=== PATIENT | male | born 1960 | race Caucasian/White ===

== ENCOUNTER → 2016-04-20 11:18 | Outpatient (CLI) | payer MEDICAID ==
[2015-01-31 09:44] VITALS: BMI 32.3
[~2016-04-20 11:18] MED LIST: ASPIRIN81 MG PO; EFFIENT10 MG PO; LISINOPRIL5 MG PO; METOPROLOL TAR100 M1 PO; PRAVACHOL20 MG PO
[2016-04-20 12:14] LABS: ALBUMIN 3.9 g/dL (3.4-5.0); ALKALINE PHOSPHATASE 71 U/L (46-116); ALT (SGPT) 25 U/L (10-68); BILIRUBIN - TOTAL 0.32 mg/dL (0.2-1.3); CALC OSMOLALITY 279 mosm/kg (275-300); CALCIUM 9.5 mg/dL (8.5-10.1); CARBON DIOXIDE 29.1 mmol/L (21.0-32.0); CHLORIDE - SERUM 103 mmol/L (98-107); CHOL - HDL RATIO 5.4 ratio (2.3-4.9); CHOLESTEROL, TOTAL 215 mg/dL (0-200); GLUCOSE 95 mg/dL (74-106); HDL CHOLESTEROL 40 mg/dL (32-96); LDL CHOLESTEROL 126 mg/dL (0-100); LDL-HDL RATIO 3.2 ratio (1.5-3.5); POTASSIUM - SERUM 4.2 mmol/L (3.5-5.1); SODIUM 140 mmol/L (136-145); TRIGLYCERIDE 245 mg/dL (30-200); UREA NITROGEN 14 mg/dL (7-18); eGFR NON AFRICAN AMERICAN 82 mL/min (90-120)
== END | disposition home or self-care (01) ==
LOC: D.LAB 11:18
PROVIDERS: General Practice
DX: I10 Essential (primary) hypertension (principal); E78.5 Hyperlipidemia, unspecified; E66.9 Obesity, unspecified

== ENCOUNTER → 2020-08-27 09:33 | Outpatient (CLI) | payer MEDICAID ==
[2015-01-31 09:44] VITALS: BMI 32.3
== END | disposition home or self-care (01) ==
LOC: D.HCCECHO 09:33
PROVIDERS: ATTEND Internal Medicine Cardiovascular Disease
DX: I25.10 Atherosclerotic heart disease of native coronary artery without angina pectoris (principal)

== ENCOUNTER 2020-09-08 10:46 | Day surgery (SDC) | payer MEDICAID ==
[~2020-09-08] VITALS: Ht 175.3 cm; Wt 102.6 kg
--- NOTE | ~2020-09-08 | HEMODYNAMI ---
PATIENT:MASSIMO ESPINOZA MEDICAL RECORD: [id number] : 60 LOCATION:[facility] ADMISSION DATE: 09/08/20 Generatedon:110:19 Patient name: MASSIMO ESPINOZA Patient #: [id number] SSN: : 1960 Date of study: 09/08/2020 Page: Of Hemodynamic Procedure Report Patient Data Patient Demographics Procedure consent was obtained First Name: MASSIMO Gender: Male Last Name: ALEXIS : 1960 [facility] Initial: MANDY Age: 60 year(s) Patient #: [id number] Race: Additional ID: [id number] Contact details [address]: [address] [place] [address] State: [place] City: [facility] Zip code: [address] Past Medical History Allergies: No known allergies Admission Admission Data Admission Date: 09/08/2020 Admission Time: 10:46 Admit Source: Other Insurance Payor: Medicaid Height (in.): 69 BSA: 2.18 (m2) Height (cm.): 175.26 BMI: 33.42 (kg/m2) Weight (lbs.): 226.28 Weight (kg.): 102.64 Lab Results Lab Result Date: 09/08/2020 Lab Result Time: 0:00 Biochemistry Name Units Result Min Max Creatinine mg/dl 1.3 --(---*)-- 0.6 1.3 eGFR ml/min 60 *-(----)-- 90 120 NONAFRICAN CBC Name Units Result Min Max Hemoglobin g/dl 17.3 --(---*)-- 13.5 17.5 Procedure Procedure Types Cath Procedure Diagnostic Procedure C [facility] w/Coronaries FFR/IVUS FFR Initial Sedation Charges Moderate Sedation 25-39 minutes PCI Procedure Coronary Stent Coronary Stent Initial Procedure Description Procedure Date Procedure Date: 09/08/2020 Procedure Start Time: 12:58 Procedure End Time: 13:49 Procedure Staff Name Function Sallie Franz RT Monitor Kiran Ruiz RN Nurse Antoni Travis MD Performing Physician Christiane Vega RT Scrub Procedure Data Cath Procedure Fluoroscopy Diagnostic fluoroscopy Total fluoroscopy Time: time: 11.6 min 11.6 min Diagnostic fluoroscopy Total fluoroscopy dose: dose: 1671 mGy 1671 mGy Contrast Material Contrast Material Type Amount (ml) Isovue 370 112 Entry Location Entry Primary Successful Side Size Upsize Upsize Entry Closure Martni ccessful Closure Location (Fr) 1 (Fr) 2 (Fr) Remarks Device Remarks Radial Right 6 Fr Mechanical artery Short Compression Estimated blood loss: 5 ml Diagnostic catheters Device Type Used For End Catheter Placement DIAGNOSTIC Celina 110cm 5 LV Angiography Fr catheter ([id number]) DIAGNOSTIC Celina 110cm 5 Left Coronary Fr catheter ([id number]) Angiography DIAGNOSTIC Celina 110cm 5 Right Coronary Fr catheter ([id number]) Angiography Procedure Complications No complications Procedure Medications Medication Administration Route Dosage Oxygen etCO2 Nasal cannula 4 l/min Lidocaine 2% S.C. 20 Heparin Flush Bag added to field 2 bags (1000units/500ml NS) 0.9% NaCl I.V. 10 ml/hr Radial Cocktail added to field 1 syringe (Verapamil 2mg/Nitro 400mcg/Heparin 1500units) Versed I.V. 1 mg Fentanyl I.V. 50 mcg Versed I.V. 1 mg Fentanyl I.V. 50 mcg Heparin Bolus I.V. 6000 units Heparin Bolus I.V. 4000 units Versed I.V. 1 mg Plavix P.O. 600 mg Hemodynamics Rest BSA: 2.18 (m2) HGB: 17.3 (g/dl) O2 Consumption: Estimated: 251.33 (ml/min) O2 Co nsumption indexed: Estimated:115.29 (ml/min/m) Heart Rate: 64 (bpm) Pressure Samples Time Site Value (mmHg) Purpose Heart Use Rate(bpm) 13:00 LV 109/-3,10 Snapshot 65 13:01 LV 103/-11,-2 Pullback 75 13:01 AO 79/44(62) Pullback 75 Gradients Valve Time Site 1 Site 2 Mean SEP/DFP Peak To Heart Use (mmHg) (sec/min) Peak Rate (mmHg) (bpm) Aortic 13:01 LV AO 10 11 24 75 103/-11,-2 79/44(62) Calculations Valve P-P Mean Valve Index Valve Source Name Gradient Area Flow (cm2) Aortic 24 10 24 10 Snapshots Pre Cath Intra NCS Post Cath Vital Signs Time Heart Resp SPO2 etCO2 NIBP (mmHg) Rhythm Pain Sedation Rate (ipm) (%) (mmHg) Status Level (bpm) 12:43:59 70 21 91 0 123/83(100) NSR 0 (11) 10(A) , No pain 12:48:09 63 18 93 23.3 115/76(90) NSR 0 (11) 10(A) , No pain 12:52:15 65 15 94 27.1 115/77(93) NSR 0 (11) 10(A) , No pain 12:56:23 63 15 88 33.1 113/73(88) NSR 0 (11) 10(A) , No pain 13:00:31 71 14 91 37.7 106/65(85) NSR 0 (11) 10(A) , No pain 13:04:36 65 13 89 26.3 105/63(77) NSR 0 (11) 10(A) , No pain 13:08:42 64 15 92 55 107/67(88) NSR 0 (11) 10(A) , No pain 13:12:48 63 14 92 56.5 102/68(78) NSR 0 (11) 10(A) , No pain 13:16:54 65 14 92 48.9 104/63(83) NSR 0 (11) 10(A) , No pain 13:20:58 66 17 92 52.7 108/70(81) NSR 0 (11) 10(A) , No pain 13:25:03 66 15 89 64.8 112/68(81) NSR 0 (11) 10(A) , No pain 13:29:11 67 15 94 51.9 104/67(86) NSR 0 (11) 10(A) , No pain 13:33:13 66 18 94 67 110/75(88) NSR 0 (11) 10(A) , No pain 13:37:19 67 17 94 63.2 114/70(81) NSR 0 (11) 10(A) , No pain 13:41:29 68 19 96 58 110/73(90) NSR 0 (11) 10(A) , No pain 13:46:32 70 19 95 48.9 No Cuff NSR 0 (11) 10(A) , No pain Medications Time Medication Route Dose Verified Delivered Reason Not es Effectiveness by by 12:49:04 Oxygen etCO2 4 l/min Antoni Buffie used for pt with Nasal Thaddeus Ruiz RN procedure lower cannula oxygen saturation at 89% on room air on arrival to lab. 12:49:22 Lidocaine 2% S.C. 20ml Antoni Buffie used for vial Thaddeus Ruiz RN procedure 12:49:36 Heparin Flush added 2 bags Antoni Buffie used for Bag to Thaddeus Ruiz RN procedure (1000units/500ml field NS) 12:51:23 0.9% NaCl I.V. 10 Antoni Buffie used for ml/hr Thaddeus Ruiz RN procedure 12:51:40 Radial Cocktail added 1 Antoni Buffie used for (Verapamil to syringe Thaddeus Ruiz RN procedure 2mg/Nitro field 400mcg/Hepari 12:59:53 Versed I.V. 1 mg Antoni Buffie for sedation Thaddeus Ruiz RN 12:59:59 Fentanyl I.V. 50 mcg Antoni Buffie for sedation Thaddeus Ruiz RN 13:05:25 Versed I.V. 1 mg Antoni Buffie for sedation Thaddeus Ruiz RN 13:05:30 Fentanyl I.V. 50 mcg Antoni Buffie for sedation Thaddeus Ruiz RN 13:08:52 Heparin Bolus I.V. 6000 Antoni Buffie for jesse ified units Thaddeus Ruiz RN anticoagulation with dr travis 13:16:21 Heparin Bolus I.V. 4000 Antoni Buffie for jesse ified units Thaddeus Ruiz RN anticoagulation with dr travis 13:30:44 Versed I.V. 1 mg Antoni Buffie for sedation Thaddeus Ruiz RN 13:46:49 Plavix P.O. 600 mg Antoni Buffie for Thaddeus Ruiz RN antiplatelet therapy Procedure Log Time Note 12:32:17 Diagnostic Cath Status : Elective 12:32:20 Admit Source: Other 12:32:27 Patient Height : 69 inches 12:32:33 Patient Weight : 226.28 lbs 12:32:45 Insurance Payor : Medicaid 12:35:21 Lab Result : Hemoglobin 17.3 g/dl 12:35:21 Lab Result : eGFR NONAFRICAN 60 ml/min 12:35:21 Lab Result : Creatinine 1.3 mg/dl 12:35:27 Kiran Ruiz RN sent for patient. Start room use. 12:35:28 Time tracking: Regular hours (M-F 7:00 - 5:00) 12:35:32 Plan of Care:Hemodynamics will remain stable., Cardiac rhythm will remain stable., Comfort level will be maintained., Respiratory function will remain adequate., Patient/ family verbilizes understanding of procedure., Procedure tolerated without complication., Recovers from procedure without complications.. 12:35:35 Procedure Status Elective Heart Cath (OP). 12:35:39 ACCPatient has been prescribed/administered the following anti-anginal medication within the last 2 weeks: Beta Katiuska 12:35:43 ACC Patient presents with Stable Angina CCS Anginal Class 2--Slight limitation of ordinary activity. 12:36:49 Patient received from Pre/Post Procedure Room to [facility] 2 Alert and oriented. Tansferred to table in Supine position. 12:36:52 Signed procedure consent form obtained from patient. 12:36:53 Warm blankets applied, and braydon hugger turned on for patient comfort. 12:36:54 ECG and BP/O2 sat monitors applied to patient. 12:36:54 Correct patient and procedure confirmed by team. 12:36:55 Full Disclosure recording started 12:42:58 Vital chart was started 12:43:08 Rhythm: sinus rhythm 12:43:35 H&P Date Dictated: 09/07/2020 Within 30 days and on chart., H&P Addendum completed by physician on day of procedure. (MUST COMPLETE FOR ALL OUTPATIENTS). 12:43:36 Pre-op teaching completed and patient verbalized understanding. 12:43:36 Pre-procedure instructions explained to patient. 12:43:39 Family in waiting room. 12:43:41 Patient NPO since Midnight. 12:43:49 Patient allergic to No known allergies 12:43:51 Is the patient allergic to Iodine/contrast media? No. 12:43:53 Is patient on blood thinner?No 12:43:58 ACC The patient was administered the following blood thiners within the last 24 hours: ACCAspirin 12:45:41 Bleeding risk 0.1%. 12:45:43 Patient diabetic? No. 12:45:47 Snore? Yes 12:45:47 Previous problem with sedation/anesthesia? No ? 12:45:49 Sleep apnea? No 12:45:50 Deviated septum? No 12:45:51 Opens mouth fully? Yes 12:45:52 Sticks out tongue? Yes 12:45:54 Airway obstruction? No ? 12:45:55 Dentures? No ? 12:46:24 Pre procedure: right dorsailis pedis pulse 2+ Normal; easily identifiable; not easily obliterated 12:46:25 Modified Dov's test Radial < 7 seconds 12:46:29 Patient pain scale 0/10 ?. 12:46:42 IV patent on arrival in right forearm with 0.9% NaCl at [facility]. 12:46:44 Lab results completed and on chart. 12:46:51 Risk of Mortality: 0.1 12:46:55 Risk of blood transfusion: 0.1 12:46:57 Risk of EVELIA: 3.7 12:47:01 Alarms reviewed by R. N. 12:47:01 Right Radial & Right Groin area was prepped with chlora-prep and draped in sterile fashion 12:47:02 Sharps counted by scrub and verified by R.N. 12:47:07 Use device set Radial Dx or PCI 12:47:08 ACIST Syringe (80259) opened to sterile field. 12:47:09 Bag Decanter (2002S) opened to sterile field. 12:47:09 Medline Cath Pack ([id number]) opened to sterile field. 12:47:10 ACIST Hand Control (26858) opened to sterile field. 12:47:11 ACIST Manifold (37921) opened to sterile field. 12:47:13 MBrace Wrist Support ([id number]) opened to sterile field. 12:47:18 NEEDLE Cook 21G 4cm Radial (R99040) opened to sterile field. 12:47:20 EMERALD Guide Wire (291-817) opened to sterile field. 12:47:20 SHEATH 6FR RAIN (5698031) opened to sterile field. 12:47:39 2) 60-89 Mildly reduced kidney function, and other findings (as for stage 1) point to kidney disease. 12:47:43 Maximum allowable contrast dose (3.7 X eGFR X 0.75)167 ml. 12:47:47 Physician arrived 12:48:38 Baseline sample Acquired. 12:49:04 Oxygen 4 l/min etCO2 Nasal cannula was administered by Kiran Ruiz RN; used for procedure; pt with lower oxygen saturation at 89% on room air on arrival to lab. Verbal order read back and verified. 12:49:22 Lidocaine 2% 20ml vial S.C. was administered by Kiran Ruiz RN; used for procedure; Verbal order read back and verified. 12:49:36 Heparin Flush Bag (1000units/500ml NS) 2 bags added to field was administered by Kiran Ruiz RN; used for procedure; Verbal order read back and verified. 12:51:23 0.9% NaCl 10 ml/hr I.V. was administered by Kiran Ruiz RN; used for procedure; Verbal order read back and verified. 12:51:40 Radial Cocktail (Verapamil 2mg/Nitro 400mcg/Heparin 1500units) 1 syringe added to field was administered by Kiran Ruiz RN; used for procedure; Verbal order read back and verified. 12:53:39 Zero performed for pressure channel P1 12:54:31 Stress Test: yes; abnormal reversible inferior and apical defect 12:58:41 Final Timeout: patient, procedure, and site verified with staff and physician. All members of the team are in agreement. 12:58:43 Right groin site verified by team. 12:58:46 Fire Safety Assessment: A--An alcohol-based skin anteseptic being used preoperatively., C--Open oxygen or nitrous oxide is being used., D--An ESU, laser, or fiber-optic light is being used. 12:58:50 Sedation plan: IV Moderate Sedation Medication:Versed, Fentanyl 12:58:54 Procedure started. 12:58:57 Local anesthetic to right radial artery with Lidocaine 2% by Antoni Travis MD.INITIAL ACCESS ONLY 12:59:18 A 6 Fr Short sheath was inserted into the Right Radial artery 12:59:53 Versed 1 mg I.V. was administered by Kiran Ruiz RN; for sedation; Verbal order read back and verified. 12:59:59 Fentanyl 50 mcg I.V. was administered by Kiran Ruiz RN; for sedation; Verbal order read back and verified. 13:00:40 A DIAGNOSTIC Celina 110cm 5 Fr catheter ([id number]) was advanced over the wire and used for LV Angiography. 13:01:09 LV gram done using BANERJEE 13:01:14 EF : 60 % 13:01:15 LV hemodynamics recorded. 13:01:23 Injector settings: Ml/sec: 5, Volume: 15, 13:01:49 A DIAGNOSTIC Celina 110cm 5 Fr catheter ([id number]) was advanced over the wire and used for Left Coronary Angiography. 13:04:45 A DIAGNOSTIC Celina 110cm 5 Fr catheter ([id number]) was advanced over the wire and used for Right Coronary Angiography. 13:05:23 INFLATOR Merit BasixCompak (YK1067) opened to sterile field. 13:05:24 GUIDE 6FR EBU 3.5 catheter ([id number]) opened to sterile field. 13:05:25 Versed 1 mg I.V. was administered by Kiran Ruiz RN; for sedation; Verbal order read back and verified. 13:05:25 [place] OmniWire (14573) opened to sterile field. 13:05:30 Catheter removed. 13:05:30 Fentanyl 50 mcg I.V. was administered by Kiran Ruiz RN; for sedation; Verbal order read back and verified. 13:05:37 Proceeding to intervention. 13:05:40 Mortality risk 0.1%. 13:06:14 Procedure type changed to Cath procedure, Diagnostic procedure, LHC, LHC w/Coronaries, FFR/IVUS, FFR Initial, Sedation Charges, Moderate Sedation 25-39 minutes, PCI procedure, Coronary Stent, Coronary Stent Initial 13:06:54 6 Fr EBU 3.5 guide catheter was inserted over the wire 13:07:02 TUBING High Pressure Extension Tubing (Thaddeus) ([id number]) opened to sterile field. 13:08:11 Omni Pressure wire advanced. 13:08:52 Heparin Bolus 6000 units I.V. was administered by Kiran Ruiz RN; for anticoagulation; verified with dr travis Verbal order read back and verified. 13:14:14 mLAD Baseline FFR 0.86. 13:16:21 Heparin Bolus 4000 units I.V. was administered by Kiran Ruiz RN; for anticoagulation; verified with dr travis Verbal order read back and verified. 13:21:52 The CRISTHIAN RX 3.0 x 18 stent ([id number]) was advanced then removed because of failure to cross lesion 13:22:06 Wire removed. 13:22:11 Guide catheter removed. 13:22:42 GUIDE 6FR XBLAD 3.5 catheter ([id number]) opened to sterile field. 13:22:55 6 Fr XBLAD 3.5 guide catheter was inserted over the wire 13:23:48 Omni wire advanced. 13:27:33 Wire removed. unable to cannulate vessel. 13:28:22 Omni wire advanced. 13:29:17 Wire advanced across lesion. 13:30:44 Versed 1 mg I.V. was administered by Kiran Ruiz RN; for sedation; Verbal order read back and verified. 13:30:52 The CRISTHIAN RX 3.0 x 18 stent ([id number]) was advanced then removed because of failure to cross lesion 13:31:00 Wire removed. damaged. 13:31:21 BMW 300cm Fountain 2 J wire ([id number]) opened to sterile field. 13:32:48 BMW wire advanced. 13:35:00 Place stent Inflation Number: 1 A CRISTHIAN RX 3.0 x 18 stent ([id number]) was prepped and advanced across the Mid LAD . The stent was deployed at 14 SHAYNA for 0:19 (min:sec) . 13:35:54 Stent catheter was removed intact over wire. 13:35:56 Wire removed. 13:37:24 Guide catheter removed. 13:37:35 Sheath removed intact; hemostasis achieved with Mechanical Compression to the Right Radial artery. 13:37:37 Procedure ended.(Physican Out) 13:37:50 Fluoroscopy time 11.60 minutes. 13:37:54 Fluoroscopy dose: 1671 mGy 13:37:54 Flurop Dose total: 1671 13:37:57 Dose Area Product 113 mGy/cm. 13:38:02 Contrast amount:Isovue 370 112ml. 13:38:03 Maximum allowable dose exceeded? No. 13:38:06 Sharps counted by scrub and verified by R.N. 13:38:10 Insertion/operative site no bleeding no hematoma. 13:38:20 Post right radial artery:stable, clean and dry 13:38:22 Post Procedure Pulses reassessed and unchanged 13:38:51 Post-procedure physical assessment completed. ASA score P 2 - A patient with mild systemic disease as per Antoni Travis MD. 13:38:53 Post procedure rhythm: unchanged. 13:38:56 Estimated blood loss: 5 ml 13:38:57 Patient needs reinforcement of post procedure teaching. 13:38:57 Post procedure instruction explained to patient.Patient verbalizes understanding. 13:40:16 ZEPHYR REGULAR TR BAND (150137) opened to sterile field. 13:40:35 Procedure Complication : No complications 13:40:37 Procedure and supply charges have been captured, reviewed, submitted and are correct. 13:40:39 Operative report dictated upon procedure completion. 13:40:40 See physician's report for complete and final results. 13:46:49 Plavix 600 mg P.O. was administered by Kiran Ruiz RN; for antiplatelet therapy; Verbal order read back and verified. 13:47:23 ACT drawn and resulted at out of range high seconds. (normal therapeutic range 180-240 seconds). 13:49:03 Vital chart was stopped 13:49:07 Report given to Pre/Post Procedure Room. 13:49:09 Patient transfered to Pre/Post Procedure Room with Stretcher. 13:49:11 Full Disclosure recording stopped 13:49:11 Procedure ended. 13:49:19 End room use (Document Last) 13:49:49 End room use (Document Last) 10:18:57 Due to technical difficulties on date of procedure, I had to have document resigned by Dr. Travis. Sallie Franz RT(R) Intervention Summary Intervention Notes Time ActionType Lesion and Equipment Used Action# Pressure Duration Attributes 13:21:52 Discard CRISTHIAN RX 3.0 x Stent 18 stent ([id number]) 13:30:52 Discard CRISTHIAN RX 3.0 x Stent 18 stent ([id number]) 13:35:00 Place stent Mid LAD CRISTHIAN RX 3.0 x 1 14 00:19 18 stent ([id number]) Device Usage Item Name Manufacture Quantity Catalog Hospital Part Current [facility] Lot# / Number Charge Number Stock Stock Serial# Code ACIST Syringe Acist 1 47369 842996 628418 166899 20 (35767) Medical [employer] Inc Medline Cath Medline 1 [id number] 174873 27176 747662 5 Pack ([id number]) Bag Decanter Microtek 1 359781 72187 721898 5 () Medical Inc. ACIST Hand Acist 1 62582 803524 362780 828616 5 Control Medical (93039) Systems Inc ACIST Manifold Acist 1 42638 958277 601485 780423 5 (71656) Medical Systems Inc MBrace Wrist Advanced 1 140-0250-00 810399 84173 611177 5 Support Vascular ([id number]) Dynamics NEEDLE Lumi Mobile Medical 1 [id number] 867247 827853 142854 5 21G 4cm Radial (D90508) SHEATH 6FR Cardinal 1 2639153 947717 1892679 566267 5 RAIN (0178765) Health EMERALD Guide Cardinal 1 502-455 557867 552645 402380 5 Wire (502-455) Health DIAGNOSTIC Terumo 1 40-6193 780887 355123 557574 5 Celina 110cm 5 Fr catheter (596907) INFLATOR Merit Merit 1 [id number] 481345 210715 197727 15 BasixAmplio Group Medical (SX0094) GUIDE 6FR EBU Medtronic 1 [id number] 797883 73645 393428 3 3.5 catheter ([id number]) [place] Greenville 1 4322402 534827 34185 9930 5 OmniWire (94285) TUBING High Merit 1 [id number] 043047 18181 703202 10 Pressure Medical Extension Tubing (Travis) ([id number]) CRISTHIAN RX 3.0 x Medtronic 1 [id number] 869784 7630520 286182 5 [id number] 18 stent ([id number]) GUIDE 6FR Cardinal 1 [id number] 804719 209732 527117 10 XBLAD 3.5 Health catheter (57167981) BMW 300cm Galeas 1 [id number] 117807 615626 744594 5 Fountain 2 J Vascular wire ([id number]) ZEPHYR REGULAR Cardinal 1 866246 431153 0342137 495292 5 TR BAND Handmark (327315) Signature Audit Roach Stage Time Signature Unsigned Intra-Procedure 09/08/2020 Kiran Rizo Counts 1:49:49 PM RN; Sallie RT(R) 09/09/2020 Counts RT(R); 10:18:01 AM Antoni Travis MD Intra-Procedure 09/09/2020 Antoni Travis MD 10:19:33 AM Signatures Monitor : Sallie Signature : Counts RT Date : Time : Nurse : Buffie Ruiz RN Signature : Date : Time : Performing Physician : Signature : Antoni Travis MD Date : Time : [address] [address] [place] [address]
[2020-09-08] MEDS ORDERED: LISINOPRIL40 MG PO (10:59)
[2020-09-08] MEDS ORDERED: PROAIR HFA8.5 G1 INH (10:59)
[2020-09-08] MEDS ORDERED: LIPITOR10 MG PO (11:03)
[2020-09-08] MEDS ORDERED: CARDIZEM120 MG PO (11:07)
[2020-09-08] MEDS ORDERED: FLOMAX0.4 MG PO (11:08)
[2020-09-08] MEDS ORDERED: METOPROLOL TART50 MG PO (11:11)
[2020-09-08 11:32] VITALS: BP 130/81; Ht 175.3 cm; Wt 102.6 kg
[2020-09-08 11:51] LABS: BASOPHILS 0.3 % (0-2); EOSINOPHILS 8.4 % (0-7); HEMATOCRIT 51.9 % (42.0-54.0); HEMOGLOBIN 17.3 g/dL (13.5-17.5); LYMPHOCYTES 20.5 % (15-50); MCH 31.2 pg (26.0-34.0); MCHC 33.3 g/dL (31.0-37.0); MCV 93.7 fL (80.0-100.0); MEAN PLATELET VOLUME 7.5 fL (7.4-10.4); MONOCYTES 15.6 % (2-11); NEUTROPHILS 55.2 % (40-80); RBC 5.54 10x6/uL (4.20-6.10); RDW 14.3 % (11.5-14.5); WBC 6.5 10x3/uL (4.8-10.8)
[2020-09-08 11:53] LABS: PLATELET COUNT 186 10x3/uL (130-400)
[2020-09-08 12:04] LABS: ANION GAP 10.4 mmol/L (8-16); CALCIUM 9.1 mg/dL (8.5-10.1); CARBON DIOXIDE 32.5 mmol/L (21.0-32.0); CREATININE - SERUM 1.3 mg/dL (0.6-1.3); LDL-HDL RATIO 1.2 ratio (1.5-3.5); POTASSIUM - SERUM 3.9 mmol/L (3.5-5.1)
--- NOTE | 2020-09-08 14:00 | NUR ---
PT REC'D TO REPRINT [facility] RECOVERY ROOM 4, MONITORS ESTAB. DAUGHTER AT BS. Z BAND TO R WRIST C/D/I - SEE TELECOM COORDINATOR FLOWSHEETS. ALARMS ON AND C/L IN REACH.
[2020-09-08] MEDS ORDERED: PLAVIX75 MG PO (14:13)
--- NOTE | 2020-09-08 14:15 | NUR ---
R Z BAND SITE C/D/I, NO S/S BLEEDING OR SWELLING. R ARM/HAND WARM WITH PALP PULSES AND BRISK CAP REFILL. VSS. ALARMS ON AND C/L IN REACH.
--- NOTE | 2020-09-08 14:45 | NUR ---
R WRIST SITE C/D/I, NO S/S BLEEDING OR HEMATOMA. R ARM/HAND WARM WITH PALP PULSES AND BRISK CAP REFILL. PT RESTING/SNORING, AWAKENS EASILY, DENIES PAIN OR NEEDS. DAUGHTER AT BS. ALARMS ON AND C/L IN REACH.
--- NOTE | 2020-09-08 15:00 | NUR ---
VSS. PT SITTING UP IN BED, I UPDATED DAUGHTER ON POC, PLAN FOR DISCHARGE AT 1800, NEW PLAVIX PRESCRIPTION PROVIDED FOR DAUGHTER TO TAKE TO PHARMACY PER PT REQUEST. R WRIST Z BAND SITE C/D/I, NO S/S BLEEDING OR HEMATOMA. PULSES PALP, BRISK CAP REFILL. ALARMS ON AND C/L IN REACH.
--- NOTE | 2020-09-08 15:30 | NUR ---
R Z BAND SITE C/D/I, NO S/S BLEEDING OR HEMATOMA. R ARM/HAND WARM WITH PALP PULSES AND BRISK CAP REFILL. SANDWICH TRAY AND COLA PROVIDED. ALARMS ON AND C/L IN REACH.
--- NOTE | 2020-09-08 15:49 | NUR ---
DR BERNARD IN TO SEE PT, UPDATED RE: WILL BRING PT BACK IN 2 WEEKS FOR ANOTHER PROCEDURE. I notified Shayna in the office, and Virgen in scheduling.
--- NOTE | 2020-09-08 16:00 | NUR ---
VSS. R ARM/HAND WARM WITH PALP PULSES, NO S/S BLEEDING OR HEMATOMA. PT TOLERATED DIET, NO N/V. DENIES PAIN OR NEEDS. STATES "I JUST WANT TO GO HOME".. POC EXPLAINED TO PT, PT VERBALIZES UNDERSTANDING. ALARMS ON AND C/L IN REACH.
--- NOTE | 2020-09-08 16:30 | NUR ---
PT RESTING QUIETLY, NO S/S BLEEDING OR HEMATOMA. PULSES PALP. PT DENIES PAIN OR NEEDS. ALARMS ON AND C/L IN REACH.
--- NOTE | 2020-09-08 17:00 | NUR ---
4CC AIR REMOVED FROM Z BAND, NO S/S BLEEDING OR HEMATOMA. R ARM/HAND WARM WITH PALP PULSES AND BRISK CAP REFILL. PT VERBALIZES UNDERSTANDING OF S/S TO REPORT TO NURSE. ALARMS ON AND C/L IN REACH.
--- NOTE | 2020-09-08 17:15 | NUR ---
TOTAL 7 CC AIR REMOVED FROM Z BAND, NO S/S BLEEDING OR HEMATOMA.
--- NOTE | 2020-09-08 17:29 | NUR ---
ALL AIR REMOVED FROM Z BAND, NO S/S BLEEDING OR HEMATOMA. VSS. DAUGHTER AT BS. PT DENIES PAIN OR NEEDS. C/L IN REACH.
--- NOTE | 2020-09-08 17:42 | NUR ---
R Z BAND REMOVED, NO S/S BLEEDING OR HEMATOMA, DSG APPLIED. PIV D/C'D INTACT, DSG APPLIED. PT ALLOWED UP TO GET DRESSED AND GO TO BR INDEPENDENTLY.
--- NOTE | 2020-09-08 17:50 | NUR ---
ALL DISCHARGE INSTRUCTIONS REVIEWED WITH PT AND DAUGHTER, INCLUDING RESTRICTIONS, MEDS (INCLUDING NEW PLAVIX) AND F/U, PLAN TO RETURN FOR PROCEDURE - BOTH VERBALIZE UNDERSTANDING.
--- NOTE | 2020-09-08 17:55 | NUR ---
PT D/C'D TO PRIVATE VEHICLE WITH DAUGHTER, PT REFUSED TO RIDE IN . PT HAS ALL BELONGINGS AND PAPERWORK.
== END 2020-09-08 17:55 | disposition home or self-care (01) ==
LOC: D.CATH 10:46
PROVIDERS: ATTEND Internal Medicine Cardiovascular Disease
DX: I25.118 Atherosclerotic heart disease of native coronary artery with other forms of angina pectoris (principal); R94.39 Abnormal result of other cardiovascular function study; I10 Essential (primary) hypertension

== ENCOUNTER 2020-09-25 06:44 | Day surgery (SDC) | payer MEDICAID ==
[~2020-09-25] VITALS: Ht 175.3 cm; Wt 102.7 kg
--- NOTE | ~2020-09-25 | HEMODYNAMI ---
PATIENT:MASSIMO ESPINOZA MEDICAL RECORD: [id number] : 60 LOCATION:[facility] ADMISSION DATE: 09/25/20 Generatedon:18:51 Patient name: MASSIMO ESPINOZA Patient #: [id number] SSN: [id number] : 1960 Date of study: 09/25/2020 Page: Of Hemodynamic Procedure Report Patient Data Patient Demographics Procedure consent was obtained First Name: MASSIMO Gender: Male Last Name: ALEXIS : 1960 Middle Initial: MANDY Age: 60 year(s) Patient #: [id number] Race: SSN: [id number] Additional ID: [id number] Contact details Address: [address] [place] [address] State: [place] City: [facility] [place] code: [address] Past Medical History Allergies: No known allergies Admission Admission Data Admission Date: 09/25/2020 Admission Time: 6:44 Arrival Date: 09/25/2020 Arrival Time: 0:00 Admit Source: Other Insurance Payor: Medicaid [facility] #: [id number] Height (in.): 69 BSA: 2.18 (m2) Height (cm.): 175.26 BMI: 33.44 (kg/m2) Weight (lbs.): 226.46 Weight (kg.): 102.72 Lab Results Lab Result Date: 09/25/2020 Lab Result Time: 0:00 Biochemistry Name Units Result Min Max BUN mg/dl 15 --(--*-)-- 7 18 Creatinine mg/dl 1.1 --(--*-)-- 0.6 1.3 eGFR ml/min 72 *-(----)-- 90 120 NONAFRICAN CBC Name Units Result Min Max Hematocrit % 50.6 --(--*-)-- 42 54 Hemoglobin g/dl 17.1 --(---*)-- 13.5 17.5 Procedure Procedure Types Cath Procedure Diagnostic Procedure FFR/IVUS FFR Initial Sedation Charges Moderate Sedation 40-54 minutes PCI Procedure Hemochron ACT Test Coronary Atherectomy Atherectomy w/PTCA Coronary Initial Procedure Description Procedure Date Procedure Date: 09/25/2020 Procedure Start Time: 8:08 Procedure End Time: 8:49 Procedure Staff Name Function Antoni Travis MD Performing Physician Yevgeniy Floyd RN Nurse Rachna Kuo RT Monitor Slime Giang RT Scrub Procedure Data Cath Procedure Fluoroscopy Diagnostic fluoroscopy Total fluoroscopy Time: time: 10.2 min 10.2 min Diagnostic fluoroscopy Total fluoroscopy dose: dose: 1031 mGy 1031 mGy Contrast Material Contrast Material Type Amount (ml) Isovue 370 76 Entry Location Entry Primary Successful Side Size Upsize Upsize Entry Closure Martin ccessful Closure Location (Fr) 1 (Fr) 2 (Fr) Remarks Device Remarks Femoral Right 6 Fr Exoseal artery Short Femoral Right 6 Fr Mechanical vein Short Compression Estimated blood loss: 10 ml Procedure Complications No complications Procedure Medications Medication Administration Route Dosage Oxygen etCO2 Nasal cannula 2 l/min Lidocaine 2% added to field 20 Heparin Flush Bag added to field 2 bags (1000units/500ml NS) 0.9% NaCl I.V. 100 ml/hr Versed I.V. 1 mg Fentanyl I.V. 50 mcg Versed I.V. 1 mg Fentanyl I.V. 50 mcg Versed I.V. 1 mg Fentanyl I.V. 25 mcg Heparin Bolus I.V. 72104 units Plavix P.O. 75 mg Hemodynamics Rest BSA: 2.18 (m2) HGB: 17.1 (g/dl) O2 Consumption: Estimated: 254.54 (ml/min) O2 Co nsumption indexed: Estimated:116.76 (ml/min/m) Heart Rate: 68 (bpm) Snapshots Pre Cath Intra NCS Post Cath Vital Signs Time Heart Resp SPO2 etCO2 NIBP (mmHg) Rhythm Pain Sedation Rate (ipm) (%) (mmHg) Status Level (bpm) 7:50:08 69 10 94 35.9 138/97(117) NSR 0 (11) 10(A) , No pain 7:54:26 71 12 96 17.9 147/94(115) NSR 0 (11) 10(A) , No pain 7:58:44 66 19 93 29.9 134/89(110) NSR 0 (11) 10(A) , No pain 8:03:04 63 15 96 14.2 120/79(95) NSR 0 (11) 9(A) , No pain 8:07:18 61 15 94 0.7 126/84(107) NSR 0 (11) 9(A) , No pain 8:11:32 68 16 91 23.9 125/84(103) NSR 0 (11) 9(A) , No pain 8:15:50 66 36 92 0 122/71(83) NSR 0 (11) 9(A) , No pain 8:20:06 62 35 93 28.4 116/73(95) NSR 0 (11) 9(A) , No pain 8:24:18 64 35 92 29.9 110/79(93) NSR 0 (11) 9(A) , No pain 8:28:30 67 15 94 26.9 122/77(94) NSR 0 (11) 9(A) , No pain 8:32:44 66 16 94 26.9 122/76(94) NSR 0 (11) 9(A) , No pain 8:36:58 66 15 94 29.2 116/77(91) NSR 0 (11) 9(A) , No pain 8:41:12 67 17 94 26.9 118/72(91) NSR 0 (11) 9(A) , No pain 8:45:28 65 35 95 25.4 114/73(92) NSR 0 (11) 10(A) , No pain 8:49:40 66 19 95 28.4 120/81(100) NSR 0 (11) 10(A) , No pain Medications Time Medication Route Dose Verified Delivered Reason Notes Effectiveness by by 7:53:49 Oxygen etCO2 2 Antoni Yevgeniy used for Nasal l/min Thaddeus Floyd natural foods clerk cannula 7:53:56 Lidocaine 2% added 20ml Antoni Antoni for local to vial Thaddeus Travis MD anesthetic field 7:54:02 Heparin Flush added 2 Antoni Antoni used for Bag to bags Thaddeus Travis MD procedure (1000units/500ml field NS) 7:54:10 0.9% NaCl I.V. 100 Antoni Antoni Per physician ml/hr Thaddeus Travis MD 7:56:29 Versed I.V. 1 mg Antoni Yevgeniy for sedation Thaddeus Floyd RN 7:56:36 Fentanyl I.V. 50 Antoni Yevgeniy for sedation mcg Thaddeus Floyd RN 8:02:26 Versed I.V. 1 mg Antoni Yevgeniy for sedation Thaddeus Floyd RN 8:02:29 Fentanyl I.V. 50 Antoni Yevgeniy for sedation mcg Thaddeus Floyd RN 8:10:14 Versed I.V. 1 mg Antoni Yevgeniy for sedation Thaddeus Floyd RN 8:10:17 Fentanyl I.V. 25 Antoni Yevgeniy for sedation mcg Thaddeus Floyd RN 8:12:52 [place]. 95250 Antoni Yevgeniy for units Thaddeus Floyd RN anticoagulation 8:49:38 Plavix P.O. 75 mg Antoni Yevgeniy for Thaddeus Floyd RN antiplatelet therapy Procedure Log Time Note 7:29:41 Informed consent obtained and on chart 7:33:05 Diagnostic Cath Status : Elective 7:33:40 Arrival Date: 09/25/2020 12:00:00 AM 7:33:41 Admit Source: Other 7:33:45 Insurance Payor : Medicaid 7:35:39 Patient Height : 69 inches 7:36:19 Patient Weight : 226.46 lbs 7:36:44 Lab Result : Hematocrit 50.6 % 7:36:44 Lab Result : Hemoglobin 17.1 g/dl 7:37:07 ACC Patient presents with Stable Angina CCS Anginal Class 2--Slight limitation of ordinary activity. 7:37:11 Procedure Status PCI. 7:37:13 Yevgeniy Floyd RN sent for patient. Start room use. 7:37:15 Time tracking: Regular hours (M-F 7:00 - 5:00) 7:37:19 Plan of Care:Hemodynamics will remain stable., Cardiac rhythm will remain stable., Comfort level will be maintained., Respiratory function will remain adequate., Patient/ family verbilizes understanding of procedure., Procedure tolerated without complication., Recovers from procedure without complications.. 7:38:35 Lab results completed and on chart, pending. 7:38:39 Stress Test: no; N/A ? 7:38:41 Alarms reviewed by R. NErick 7:38:41 Sharps counted by scrub and verified by R.N. 7:48:44 Quick Combo opened to sterile field. 7:48:54 Patient received from Pre/Post Procedure Room to CCL 1 Alert and oriented. Tansferred to table in Supine position. 7:48:55 Warm blankets applied, and braydon hugger turned on for patient comfort. 7:48:55 Correct patient and procedure confirmed by team. 7:48:56 ECG and BP/O2 sat monitors applied to patient. 7:48:58 Vital chart was started 7:48:59 Full Disclosure recording started 7:49:01 Pre-procedure instructions explained to patient. 7:49:02 Pre-op teaching completed and patient verbalized understanding. 7:49:05 Family in waiting room. 7:49:07 Patient NPO since Midnight. 7:49:12 Patient allergic to No known allergies 7:49:16 Is the patient allergic to Iodine/contrast media? No. 7:49:18 Was the patient premedicated? No 7:49:20 Is patient on blood thinner?Yes 7:49:22 Patient diabetic? Yes. 7:49:24 If diabetic: On Metformin? No 7:49:26 ----Pre-sedation anethsthesia assessment.---- 7:49:29 Previous problem with sedation/anesthesia? No ? 7:51:22 Snore? Yes 7:51:29 ACC The patient was administered the following blood thiners within the last 24 hours: ACCPlavix 7:51:31 Sleep apnea? No 7:51:32 Deviated septum? No 7:51:33 Opens mouth fully? Yes 7:51:35 Sticks out tongue? Yes 7:51:39 Airway obstruction? Yes copd 7:51:42 Dentures? No ? 7:51:49 Rhythm: sinus rhythm 7:51:52 Baseline sample Acquired. 7:51:58 Patient pain scale 0/10 ?. 7:52:04 IV patent on arrival in left antecubital with 0.9% NaCl at KVO. 7:52:08 Right groin area was prepped with chlora-prep and draped in sterile fashion 7:52:17 Use device set Femoral Dx 7:52:18 ACIST Syringe (64794) opened to sterile field. 7:52:19 Bag Decanter (2002) opened to sterile field. 7:52:19 Medline Cath Pack ([id number]) opened to sterile field. 7:52:20 ACIST Hand Control (83659) opened to sterile field. 7:52:21 ACIST Manifold (25936) opened to sterile field. 7:52:23 Tegaderm 4 x 4 (1626W) opened to sterile field. 7:52:25 EMERALD Guide Wire (161-547) opened to sterile field. 7:52:27 Use device set TRAVIS PCI 7:52:29 SHEATH 6FR Glenwood (UIB674) opened to sterile field. 7:52:32 INFLATOR Merit BasixCompak (YV7867) opened to sterile field. 7:52:33 TUBING High Pressure Extension Tubing (Thaddeus) (SR9228M) opened to sterile field. 7:53:49 Oxygen 2 l/min etCO2 Nasal cannula was administered by Yevgeniy Floyd RN; used for procedure; Verbal order read back and verified. 7:53:56 Lidocaine 2% 20ml vial added to field was administered by Antoni Travis MD; for local anesthetic; Verbal order read back and verified. 7:54:02 Heparin Flush Bag (1000units/500ml NS) 2 bags added to field was administered by Antoni Travis MD; used for procedure; Verbal order read back and verified. 7:54:10 0.9% NaCl 100 ml/hr I.V. was administered by Antoni Travis MD; Per physician; Verbal order read back and verified. 7:54:11 Lab Result : eGFR NONAFRICAN 72 ml/min 7:54:11 Lab Result : Creatinine 1.1 mg/dl 7:54:11 Lab Result : BUN 15 mg/dl 7:55:03 --------ALL STOP TIME OUT------ 7:55:03 Final Timeout: patient, procedure, and site verified with staff and physician. All members of the team are in agreement. 7:55:05 Right groin site verified by team. 7:55:09 Fire Safety Assessment: A--An alcohol-based skin anteseptic being used preoperatively., C--Open oxygen or nitrous oxide is being used., D--An ESU, laser, or fiber-optic light is being used. 7:55:13 Physical assessment completed. ASA score P 2 - A patient with mild systemic disease as per Antoni Travis MD. 7:55:16 2) 60-89 Mildly reduced kidney function, and other findings (as for stage 1) point to kidney disease. 7:55:18 Maximum allowable contrast dose (3.7 X eGFR X 0.75)200 ml. 7:55:22 Sedation plan: IV Moderate Sedation Medication:Versed, Fentanyl 7:56:29 Versed 1 mg I.V. was administered by Yevgeniy Floyd RN; for sedation; Verbal order read back and verified. 7:56:36 Fentanyl 50 mcg I.V. was administered by Yevgeniy Floyd RN; for sedation; Verbal order read back and verified. 8:00:07 SHEATH 6FR Glenwood (LCZ897) opened to sterile field. 8:01:18 GUIDE 6FR XBLAD 3.5 catheter ([id number]) opened to sterile field. 8:01:20 5Fr J Tip Temporary Pacing Catheter ([id number]) opened to sterile field. 8:01:22 LASER ELCA 0.9 Rx atherectomy catheter (748596) opened to sterile field. 8:02:26 Versed 1 mg I.V. was administered by Yevgeniy Floyd RN; for sedation; Verbal order read back and verified. 8:02:29 Fentanyl 50 mcg I.V. was administered by Yevgeniy Floyd RN; for sedation; Verbal order read back and verified. 8:05:22 Procedure started. 8:06:37 Polk OmniWire (90724) opened to sterile field. 8:08:07 Local anesthetic to right femoral artery with Lidocaine 2% by Antoni Travis MD.INITIAL ACCESS ONLY 8:08:17 A 6 Fr Short sheath was inserted into the Right Femoral artery 8:09:27 Local anesthetic to left femoral vein with Lidocaine 2% by Antoni Travis MD.ADDITIONAL ACCESS 8:09:35 A 6 Fr Short sheath was inserted into the Right Femoral vein 8:10:14 Versed 1 mg I.V. was administered by Yevgeniy Floyd RN; for sedation; Verbal order read back and verified. 8:10:17 Fentanyl 25 mcg I.V. was administered by Yevgeniy Floyd RN; for sedation; Verbal order read back and verified. 8:10:26 GUIDE 6FR AR 1.0 catheter ([id number]) opened to sterile field. 8:10:34 6 Fr AR 1.0 guide catheter was inserted over the wire 8:12:52 Heparin Bolus 53943 units I.V. was administered by Yevgeniy Floyd RN; for anticoagulation; Verbal order read back and verified. 8:14:20 Pressure wire advanced. 8:14:56 Wire advanced across lesion. 8:16:17 RCA lesion measured at .87 with IFR 8:16:38 LASER ATHERECTOMY 8:21:58 Laser pass to pRCA with Fluence of 40 and Rate of 40. 8:22:54 Laser pass to pRCA with Fluence of 60 and Rate of 60. 8:24:28 Laser pass to pRCA with Fluence of 80 and Rate of 80. 8:25:44 Laser catheter removed. 8:25:45 Laser total pulses delivered: 4800 8:25:45 Laser total treatment time: 1 minutes 17 seconds 8:28:35 Inflate balloon Inflation number: 1 A EUPHORA 3.0 x 15 Balloon ([id number]) was prepped and advanced across the Prox RCA 85, then inflated to 16 SHAYNA for 0:24 (min:sec) . 8:29:07 Inflation number: 2 The EUPHORA 3.0 x 15 Balloon ([id number]) was reinflated across the Prox RCA , to 16 SHAYNA for 0:16 (min:sec) . 8:29:47 Balloon removed over the wire. 8:32:54 Inflate balloon Inflation number: 3 A NC EUPHORA 3.5 x 15 balloon ([id number]) was prepped and advanced across the Prox RCA , then inflated to 14 SHAYNA for 0:28 (min:sec) . 8:33:45 Balloon removed over the wire. 8:34:14 Pressure wire advanced. 8:34:14 Wire advanced across lesion. 8:35:00 pRCA lesion measured at .93 with IFR 8:35:15 IFR LEFT IN BALLOON INSERTED OVER WIRE. 8:38:36 Inflation number: 1 The NC EUPHORA 3.5 x 15 balloon ([id number]) was reinflated across the Mid RCA , to 1 SHAYNA for 0:22 (min:sec) . 8:39:31 Balloon removed over the wire. 8:40:32 IFR ADVANCED ACROSS LESION. 8:40:58 RCA lesion measured at .89 with IFR 8:42:10 Wire removed. 8:42:11 Guide catheter removed. 8:42:57 EXOSEAL 6Fr (EX600) opened to sterile field. 8:43:08 Sheath removed intact; hemostasis achieved with Mechanical Compression to the Right Femoral vein. 8:43:13 Sheath removed intact; hemostasis achieved with Exoseal to the Right Femoral artery. 8:43:15 Procedure ended.(Physican Out) 8:43:36 Fluoroscopy time 10.20 minutes. 8:43:44 Fluoroscopy dose: 1031 mGy 8:43:44 Flurop Dose total: 1031 8:44:05 Dose Area Product 15179 mGy/cm. 8:44:09 Contrast amount:Isovue 370 76ml. 8:44:12 Maximum allowable dose exceeded? No. 8:44:13 Sharps counted by scrub and verified by R.N. 8:44:18 Post-op/insertion site Right Femoral artery dressed using a 4 x 4 and Tegaderm. 8:44:27 Post-op/insertion site Right Femoral vein dressed using a 4 x 4 and Tegaderm. 8:44:33 Post right femoral artery:stable, soft, clean and dry 8:44:38 Post right femoral vein:stable, soft, clean and dry 8:44:39 Post Procedure Pulses reassessed and unchanged 8:44:43 Post procedure: right dorsailis pedis pulse 2+ Normal; easily identifiable; not easily obliterated. 8:44:46 Post-procedure physical assessment completed. ASA score P 2 - A patient with mild systemic disease as per Antoni Travis MD. 8:44:49 Post procedure rhythm: unchanged. 8:44:56 Estimated blood loss: 10 ml 8:44:58 Post procedure instruction explained to patient.Patient verbalizes understanding. 8:44:58 Patient needs reinforcement of post procedure teaching. 8:46:02 Procedure type changed to Cath procedure, Diagnostic procedure, FFR/IVUS, FFR Initial, Sedation Charges, Moderate Sedation 40-54 minutes, PCI procedure, Hemochron ACT Test, Coronary Atherectomy, Atherectomy w/PTCA Coronary Initial 8:47:48 ACT drawn and resulted at HI seconds. (normal therapeutic range 180-240 seconds). 8:48:48 Procedure and supply charges have been captured, reviewed, submitted and are correct. 8:48:51 Procedure Complication : No complications 8:48:55 [facility] Findings: MVD- PCI performed (see procedure note) 8:48:58 Operative report dictated upon procedure completion. 8:48:59 See physician's report for complete and final results. 8:49:00 Report given to Pre/Post Procedure Room. 8:49:05 Patient transfered to Pre/Post Procedure Room with Stretcher. 8:49:07 Procedure ended. 8:49:07 Full Disclosure recording stopped 8:49:15 ACC-PCI Only Patient was given prescriptions, or instructed by Antoni Travis MD to start/continue the following medications upon discharge: Plavix 8:49:16 End room use (Document Last) 8:49:25 End room use (Document Last) 8:49:38 Plavix 75 mg P.O. was administered by Yevgeniy Floyd RN; for antiplatelet therapy; Verbal order read back and verified. 8:51:46 Vital chart was stopped Intervention Summary Intervention Notes Time ActionType Lesion and Equipment Action# Pressure Duration Attributes Used 8:28:35 Inflate Prox RCA EUPHORA 3.0 1 16 00:24 balloon x 15 Balloon ([id number]) 8:29:07 Reinflate Prox RCA EUPHORA 3.0 2 16 00:16 balloon x 15 Balloon ([id number]) 8:32:54 Inflate Prox RCA NC EUPHORA 3 14 00:28 balloon 3.5 x 15 balloon ([id number]) 8:38:36 Reinflate Mid RCA NC EUPHORA 1 1 00:22 balloon 3.5 x 15 balloon ([id number]) Device Usage Item Name Manufacture Quantity Catalog Hospital Part Current Minim al Lot# / Number Charge Number Stock Stock Serial# Code Quick Combo Edge Systems 1 54424-331892 769714 254979 072453 5 ACIST Acist 1 19100 322344 219061 539454 20 Syringe Medical (89477) Systems Inc Bag Decanter Microtek 1 831938 71176 422479 5 () Medical Inc. Medline Cath Medline 1 [id number] 091647 42423 638490 5 Pack ([id number]) ACIST Hand Acist 1 03389 734199 268733 401877 5 Control Medical (31169) Systems Inc ACIST Acist 1 29791 672569 591674 117688 5 Manifold Medical (76800) Systems Inc Tegaderm 4 x 3M 1 1626W 951817 776352 553611 5 4 (1626W) EMERALD Cardinal 1 502-455 984970 732760 168566 5 Guide Wire [facility] (502-455) SHEATH 6FR Terumo 2 NWI569 066011 066455 352994 40 [place] (KDS409) INFLATOR Merit 1 XT6736 648791 386346 807778 15 ClearContext BasixCompak (WP7286) TUBING High Merit 1 [id number] 299111 47656 367473 10 Pressure Medical Extension Tubing (Travis) (JS5129V) GUIDE 6FR Cardinal 1 [id number] 929512 227025 352723 10 XBLAD 3.5 Health catheter (36017268) 5Fr J Tip Berry 1 [id number] 791988 99064 993273 2 Temporary Lifesciences Pacing Catheter ([id number]) LASER ELCA Anahi 1 110-004 163380 689796 947675 5 0.9 Rx Healthcare atherectomy (568919) catheter (511969) Polk Polk 1 7842199 435028 16751 9917 5 OmniWire (75894) GUIDE 6FR AR Medtronic 1 PA8NM28 419168 17966 561621 1 1.0 catheter (PH9XE77) EUPHORA 3.0 Medtronic 1 [id number] 456143 944070 557398 5 [id number] x 15 Balloon ([id number]) NC EUPHORA Medtronic 1 [id number] 868295 417787 195630 1 [id number] 3.5 x 15 balloon ([id number]) EXOSEAL 6Fr Cardinal 1 EX600 728426 436288 319838 10 (EX600) Health Signature Audit Uvalda Stage Time Signature Unsigned Intra-Procedure 09/25/2020 Rachna Kuo 8:49:26 AM RT(R) Intra-Procedure 09/25/2020 Yevgeniy Floyd RN 8:51:04 AM Intra-Procedure 09/25/2020 Antoni Travis MD 8:51:44 AM [facility] [address] [place] [address]
[~2020-09-25 06:44] MED LIST changes: +CARDIZEM120 MG PO; +FLOMAX0.4 MG PO; +LIPITOR10 MG PO; +LISINOPRIL40 MG PO; +METOPROLOL TART50 MG PO; +PLAVIX75 MG PO; +PROAIR HFA8.5 G1 INH
[2020-09-25 07:16] VITALS: BP 139/87; Ht 175.3 cm; Wt 102.7 kg
[2020-09-25 07:24] LABS: BASOPHILS 1.1 % (0-2); HEMATOCRIT 50.6 % (42.0-54.0); HEMOGLOBIN 17.1 g/dL (13.5-17.5); LYMPHOCYTES 10.2 % (15-50); MCH 31.6 pg (26.0-34.0); MCHC 33.9 g/dL (31.0-37.0); MCV 93.4 fL (80.0-100.0); MEAN PLATELET VOLUME 7.1 fL (7.4-10.4); MONOCYTES 8.9 % (2-11); NEUTROPHILS 76.8 % (40-80); PLATELET COUNT 248 10x3/uL (130-400); RBC 5.42 10x6/uL (4.20-6.10); RDW 13.7 % (11.5-14.5); WBC 9.9 10x3/uL (4.8-10.8)
[2020-09-25 07:42] LABS: CALCIUM 8.8 mg/dL (8.5-10.1); CARBON DIOXIDE 29.1 mmol/L (21.0-32.0); CREATININE - SERUM 1.1 mg/dL (0.6-1.3); LDL-HDL RATIO 1.2 ratio (1.5-3.5); POTASSIUM - SERUM 4.1 mmol/L (3.5-5.1)
--- NOTE | 2020-09-25 09:10 | NUR ---
PT ARRIVED TO CATH RECOVERY ROOM 8. MONITORING EQUIPMENT APLLIED, ASSESSMENT COMPLETE. R GROIN EXOSEAL CDI WITH NO S/S OF HEMATOMA. PEDAL PULSES PRESENT. DENIES NAUSEA AT THIS TIME. PT VERBALIZES UNDERSTANDING OF IMPORTANCE OF KEEPING R LEG STRAIGHT AND HEAD FLAT ON PILLOW. CALL LIGHT WITHIN PT REACH.
--- NOTE | 2020-09-25 09:25 | NUR ---
PT RESTING QUIETLY WITH UNLABORED RESPIRATIONS. R GROIN EXOSEAL SITE CDI WITH NO S/S OF HEMATOMA. PEDAL PULSES PRESENT. DAUGHTER CALLED, PIN PROVIDED AND UPDATE GIVEN. CALL LIGHT WITHIN PT REACH. CPOC.
--- NOTE | 2020-09-25 09:40 | NUR ---
AOX4, FOLLOWS COMMANDS. TOLERATING ICE CHIPS AT THIS TIME. R GROIN EXOSEAL CDI WITH NO S/S OF HEMATOMA. PEDAL PULSES PRESENT. NO COMPLAINTS VOICED AT THIS TIME. CALL LIGHT WITHIN PT REACH.
--- NOTE | 2020-09-25 09:55 | NUR ---
R GROIN EXOSEAL CDI, NO S/S OF HEMATOMA. PEDAL PULSES PRESENT. NO COMPLAINTS AT THIS TIME. CALL LIGHT WITHIN PT REACH.
--- NOTE | 2020-09-25 10:10 | NUR ---
R GROIN EXOSEAL CDI WITH NO S/S OF HEMATOMA. PEDAL PULSES PRESENT. R LEG STRAIGHT, HEAD FLAT ON PILLOW. CALL LIGHT WITHIN PT REACH.
--- NOTE | 2020-09-25 10:30 | NUR ---
R GROIN EXOSEAL CDI WITH NO S/S OF HEMATOMA. PEDAL PULSES PRESENT. CALL LIGHT WITHIN PT REACH.
--- NOTE | 2020-09-25 11:00 | NUR ---
PT AOX4, VOICES NO CONCERNS AT THIS TIME. R GROIN EXOSEAL CDI WITH NO S/S OF HEMATOMA. PEDAL PULSES PRESENT. CALL LIGHT WITHIN PT REACH.
--- NOTE | 2020-09-25 11:02 | NUR ---
DR BERNARD AT BEDSIDE, UPDATE PROVIDED
--- NOTE | 2020-09-25 11:25 | NUR ---
R GROIN EXOSEAL CDI NO S/S OF HEMATOMA. PEDAL PULSES PRESENT. CALL LIGHT WITHIN PT REACH.
--- NOTE | 2020-09-25 11:45 | NUR ---
R GROIN EXOSEAL CDI WITH NO S/S OF HEMATOMA. PEDAL PULSES PRESENT. HOB ELEVATED. SANDWICH TRAY PROVIDED, NO NAUSEA PRESENT. CALL LIGHT WITHIN PT REACH.
--- NOTE | 2020-09-25 12:15 | NUR ---
R GROIN EXOSEAL CDI WITH NO S/S OF HEMATOMA. PEDAL PULSES PRESENT.
--- NOTE | 2020-09-25 12:30 | NUR ---
DISCHARGE INSTURCTIONS PROVIDED, DAUGHTER AT BEDSIDE. PT AND DAUGHTER VERBALIZE UNDERSTANDING OF DISCHARGE INSTRUCTIONS AT THIS TIME. PIV D/C'D WITH CATH TIP INTACT. PT ALLOWED TO GET DRESSED INDEPENDENTLY.
--- NOTE | 2020-09-25 12:40 | NUR ---
PT TO BATHROOM INDEPENDENTLY
--- NOTE | 2020-09-25 12:45 | NUR ---
PT DISCHARGED VIA WHEELCHAIR TO PRIVATE VEHICLE. BELONGINGS AND PAPERWORK WITH PT
== END 2020-09-25 12:45 | disposition home or self-care (01) ==
LOC: D.CATH 06:44
PROVIDERS: ATTEND Internal Medicine Cardiovascular Disease
DX: T82.855A Stenosis of coronary artery stent, initial encounter (principal); I25.119 Atherosclerotic heart disease of native coronary artery with unspecified angina pectoris